=== PATIENT | male | born 1975 | race Caucasian/White ===

== ENCOUNTER 2018-08-06 18:59 | Emergency (ER) | payer MEDICAID, OTHER ==
[2018-08-06 21:43] LABS: HEMATOCRIT 43.4 % (42.0-52.0); MEAN CORPUSCULAR HEMOGLOBIN 31.8 pg (29.0-33.0); MEAN CORPUSCULAR HGB CONC 34.6 g/dl (32.0-37.0); MEAN CORPUSCULAR VOLUME 91.9 fl (82.0-101.0); MEAN PLATELET VOLUME 9.4 fl (7.4-10.4); PLATELET COUNT 297 10^3/UL (140-415); RED BLOOD COUNT 4.72 10^6/ul (4.70-6.10); RED CELL DISTRIBUTION WIDTH 11.5 % (11.5-14.5)
[2018-08-06 21:43] LABS: WHITE BLOOD COUNT 7.3 10^3/ul (4.8-10.8)
[2018-08-06 21:46] LABS: ADD MAN DIFF? YES
[2018-08-06] MEDS: KETOROLAC 15 MG INJ IV (21:47)
[2018-08-06 22:00] LABS: ALBUMIN/GLOBULIN RATIO 1.45; ANION GAP 11 (5-13); BILIRUBIN,TOTAL 0.4 mg/dl (0.2-1.3); Estimated GFR > 60 mL/min (>60)
[2018-08-06 22:14] LABS: ALANINE AMINOTRANSFERASE 29 IU/L (13-69); ALBUMIN 4.5 g/dl (3.3-4.9); ALKALINE PHOSPHATASE 84 IU/L (42-121); ASPARTATE AMINO TRANSFERASE 30 IU/L (15-46); B-TYPE NATRIURETIC PEPTIDE < 11 PG/ML (0-125); BILIRUBIN,INDIRECT 0.4 mg/dl (0-1.1); BLOOD UREA NITROGEN 11 mg/dl (7-20); CALCIUM 9.3 mg/dl (8.4-10.2); CARBON DIOXIDE 24 mmol/L (21-31); CHLORIDE 107 mmol/L (97-110); CREATININE 0.72 mg/dl (0.61-1.24); GLUCOSE 123 mg/dl (70-220); LIPASE 105 U/L (23-300); POTASSIUM 3.7 mmol/L (3.5-5.1); SODIUM 142 mmol/L (135-144); TOTAL PROTEIN 7.6 g/dl (6.1-8.1); TROPONIN-I < 0.012 ng/ml (0.000-0.120)
[2018-08-06 23:05] LABS: EOSINOPHILS % (M) 12 % (0-7); LYMPHOCYTES #M 3.1 10^3/ul (0.8-2.9); LYMPHOCYTES % (M) 43 % (15-51); MONOCYTE #M 0.2 10^3/ul (0.3-0.9); MONOCYTES % (M) 4 % (0-11); PLATELET ESTIMATE NORMAL; SEGMENTED NEUTROPHILS (M) % 40 % (39-77); SMUDGE%M 31 % (0-0)
== END 2018-08-06 23:30 | disposition home or self-care (01) ==
LOC: E/R 18:59
DX: R07.9 Chest pain, unspecified (principal)
CPT/HCPCS: 36415; 71045; 80053; 83690; 83880; 84484; 85025; 96374; 99284-25

== ENCOUNTER 2018-08-16 08:55 | Emergency (ER) | payer MEDICAID ==
[2018-08-16 10:11] LABS: TROPONIN-I < 0.012 ng/ml (0.000-0.120)
[2018-08-16] MEDS: KETOROLAC 30 MG INJ IV (10:23)
== END 2018-08-16 11:15 | disposition home or self-care (01) ==
LOC: E/R 08:55
DX: R07.2 Precordial pain (principal)
CPT/HCPCS: 36415; 71045; 84484; 93005; 96374; 99285-25